=== PATIENT | female | born 1980 | race Caucasian/White ===

== ENCOUNTER 2019-11-07 14:43 | Emergency (ER) | payer MEDICAID ==
[~2019-11-07] VITALS: Ht 147.3 cm; Wt 54.4 kg
[2019-11-07 14:56] VITALS: BP 128/70
--- NOTE | 2019-11-07 15:31 | NUR ---
39 Y/O FEMALE C/O RT SIDED EAR PAIN RADIATING TO RT SIDE OF NECK AND JAW X 3 DAYS. PT STATES SHE HAD "BUMP" BEHIND RT EAR THURDAY AND WENT TO URGENT CARE AND THEY SAID SHE HAD EAR INFECTION. PT WAS GIVEN AMOXICILLIN. 8/10 PULSING PAIN TO RT EAR AT THIS TIME. DENIES DRAINAGE. DENIES FEVER. RR EVEN AND UNLAOBRED. BED LOCKED AND IN LOW POSITION. X 1 SIDE RAIL RAISED. VSS MEDHX: DENIES ALLERGIES: NKA
[2019-11-07] MEDS ORDERED: KETOROLAC 30 MG/ML VIAL IM ONE (15:50)
--- NOTE | 2019-11-07 16:12 | NUR ---
PT TO CT VIA WHEELCHAIR
--- NOTE | 2019-11-07 16:55 | NUR ---
Patient discharged with v/s stable. Written and verbal after care instructions given and explained. Patient alert, oriented and verbalized understanding of instructions. Ambulatory with steady gait. All questions addressed prior to discharge. ID band removed. Patient advised to follow up with PMD. Rx of NAPROSYN, LORATADINE given. Patient educated on indication of medication including possible reaction and side effects. Opportunity to ask questions provided and answered.
[2019-11-07 17:01] VITALS: BP 128/70
== END 2019-11-07 16:55 | disposition home or self-care (01) ==
LOC: MED 14:43
DX: S46.811A Strain of other muscles, fascia and tendons at shoulder and upper arm level, right arm, initial encounter (principal); H66.91 Otitis media, unspecified, right ear; X58.XXXA Exposure to other specified factors, initial encounter; Y93.89 Activity, other specified; Y92.89 Other specified places as the place of occurrence of the external cause; Y99.8 Other external cause status
CPT/HCPCS: 70480; 81025; 96372; 99284; J1885

== ENCOUNTER 2019-11-13 15:36 | Emergency (ER) | payer MEDICAID ==
[~2019-11-13] VITALS: Ht 152.4 cm; Wt 54.4 kg
[2019-11-13 15:54] VITALS: BP 116/88
--- NOTE | 2019-11-13 16:29 | NUR ---
C/O LUMP RIGHT SIDE OF NECK X LAST NIGHT ----PAINFUL RECENT FINISHED COURSE OF ANTIBIOTIC 3 DAYS AGO. PT AWAKE , ALERT, AFIBRILE , AMBULATORY WITH STEADY GAIT.SCE, CBS, MOVABLE NODULE RT NECK NONTENDER. HX--DENIES RX---NONE
--- NOTE | 2019-11-13 16:30 | NUR ---
ASHISH GARCIA AT BEDSIDE EVALUATING PT.
--- NOTE | 2019-11-13 16:55 | NUR ---
family at bedside.
[2019-11-13 17:04] VITALS: BP 116/88
--- NOTE | 2019-11-13 17:05 | NUR ---
Patient discharged with v/s stable. Written and verbal after care instructions given and explained regarding cervical adenitis. Patient alert, oriented and verbalized understanding of instructions. Ambulatory with steady gait. All questions addressed prior to discharge. ID band removed. Patient advised to follow up with PMD. Rx of ibuprofen given. Patient educated on indication of medication including possible reaction and side effects. Opportunity to ask questions provided and answered.
== END 2019-11-13 17:05 | disposition home or self-care (01) ==
LOC: MED 15:36
DX: L98.8 Other specified disorders of the skin and subcutaneous tissue (principal)
CPT/HCPCS: 99282

== ENCOUNTER 2021-12-20 01:13 | Emergency (ER) | payer MEDICAID ==
[~2021-12-20] VITALS: Ht 152.4 cm; Wt 52.2 kg
[2021-12-20 01:30] VITALS: BP 127/82
--- NOTE | 2021-12-20 01:30 | NUR ---
TO BED AMBULATORY
[2021-12-20] MEDS ORDERED: cephALEXin 500 MG CAP PO ONE (02:10)
[2021-12-20] MEDS ORDERED: IBUPROFEN 800 MG TAB PO ONE (02:10)
--- NOTE | 2021-12-20 02:14 | NUR ---
RECEIVED IN BED 8 WITH C/O RT FLANK PAIN FOR A WEEK
--- NOTE | 2021-12-20 02:20 | NUR ---
US AT BEDSIDE
[2021-12-20] MEDS ORDERED: IBUP-2218 PO (03:10)
[2021-12-20] MEDS ORDERED: CEPH-588 PO (03:10)
[2021-12-20 03:15] VITALS: BP 127/82
--- NOTE | 2021-12-20 03:15 | NUR ---
Patient discharged with v/s stable. Written and verbal after care instructions given and explained. Patient alert, oriented and verbalized understanding of instructions. Ambulatory with steady gait. All questions addressed prior to discharge. ID band removed. Patient advised to follow up with PMD. Rx of keflex & ibuprofen given. Patient educated on indication of medication including possible reaction and side effects. Opportunity to ask questions provided and answered.
== END 2021-12-20 03:15 | disposition home or self-care (01) ==
LOC: MED 01:13
DX: N39.0 Urinary tract infection, site not specified (principal); Z79.899 Other long term (current) drug therapy
CPT/HCPCS: 76770; 81002; 81025; 99284; Q0092

== ENCOUNTER 2024-07-02 00:32 | Emergency (ER) | payer MEDICAID ==
[~2024-07-02] VITALS: Ht 149.9 cm; Wt 59.0 kg
[~2024-07-02 00:32] MED LIST: CEPH-588 PO; IBUP-2218 PO
[2024-07-02 00:50] VITALS: BP 140/84; PULSE 91; RESP 18; TEMP 98.2; O2SAT 98
[2024-07-02 01:48] LABS: APPEARANCE,URINE CLEAR (CLEAR); BILIRUBIN,URINE NEGATIVE (NEGATIVE); BLOOD, URINE 3+ (NEGATIVE); COLOR,URINE YELLOW (YELLOW); LEUKOCYTE ESTERASE ,URINE 1+ (NEGATIVE); NITRITE, URINE NEGATIVE (NEGATIVE); PH,URINE 6.5 (5.0-9.0); PROTEIN,URINE NEGATIVE (NEGATIVE); UGLUCOSE NEGATIVE (NEGATIVE); UROBILINOGEN,URINE 0.2 EU/dL (0.2 - 1)
[2024-07-02 01:55] LABS: BACTERIA,URINE 1+ /HPF (None Seen)
[2024-07-02 02:03] LABS: BASOPHILS # (AUTO) 0.1 K/uL (0.00-0.22); BASOPHILS % (AUTO) 0.8 % (0.0-2.0); EOSINOPHILS # (AUTO) 0.3 K/uL (0-0.4); EOSINOPHILS % (AUTO) 3.2 % (0.0-4.0); HEMATOCRIT 43.9 % (36-48); HEMOGLOBIN 14.8 g/dL (12.0-16.0); LYMPHOCYTES # (AUTO) 2.3 K/uL (2.5-16.5); LYMPHOCYTES % (AUTO) 26.7 % (20.5-51.1); MEAN CORPUSCULAR HEMOGLOBIN 29 pg (27-31); MEAN CORPUSCULAR HGB CONC 34 g/dL (33-37); MEAN CORPUSCULAR VOLUME 87.2 fL (80-94); MONOCYTES # (AUTO) 0.6 K/uL (0.8-1.0); MONOCYTES % (AUTO) 7.1 % (1.7-9.3); NEUTROPHILS # (AUTO) 5.3 K/uL (1.8-7.7); NEUTROPHILS % (AUTO) 62.2 % (42.2-75.2); PLATELET COUNT (AUTO) 179 K/uL (140-450); RED BLOOD CELL COUNT(AUTO) 5.04 MIL/uL (4.20-5.40); RED CELL DISTRIBUTION WIDTH 14.2 % (11.6-13.7); WHITE BLOOD COUNT (AUTO) 8.5 K/uL (4.8-10.8)
[2024-07-02] MEDS: NACL 0.9% 1,000 ML IV ONE (02:06)
[2024-07-02] MEDS: KETOROLAC 30 MG/ML VIAL IVP ONE (02:13)
[2024-07-02 02:18] LABS: ANION GAP 11.3 (8-16); CALCIUM 9.3 mg/dL (8.5-10.1); CARBON DIOXIDE 31.2 mmol/L (21-32); CREATININE 0.7 mg/dL (0.6-1.3); POTASSIUM 3.5 mmol/L (3.5-5.1)
[2024-07-02 02:27] LABS: ALBUMIN 3.7 g/dL (3.4-5.0); BILIRUBIN,DIRECT 0.1 mg/dL (0.0-0.3); TOTAL BILIRUBIN 0.3 mg/dL (0.0-1.0); TOTAL PROTEIN, SERUM 9.2 g/dL (6.4-8.2)
[2024-07-02] MEDS ORDERED: cefTRIAXone 1,000 MG VIAL ONE (03:20)
[2024-07-02 06:18] VITALS: BP 134/78; PULSE 90; RESP 15; TEMP 98.3; O2SAT 99
[2024-07-02] MEDS ORDERED: CIPR500T4 PO (06:20)
== END 2024-07-02 06:18 | disposition home or self-care (01) ==
LOC: MED 00:32
DX: R10.13 Epigastric pain (principal); R11.0 Nausea; Z79.899 Other long term (current) drug therapy
CPT/HCPCS: 36415; 74176; 80048; 80076; 81001; 81025; 82150; 83690; 85025; 87040; 87086; 96361; 96365; 96375; 99285; J0696; J1885; J7030